=== PATIENT | male | born 1995 | race Caucasian/White ===

== ENCOUNTER 2018-04-24 08:52 | Emergency (ER) | payer OTHER ==
[~2018-04-24] VITALS: Ht 182.9 cm; Wt 113.5 kg
[2018-04-24 09:00] VITALS: BP 164/104
[2018-04-24] MEDS ORDERED: ibuprofen 200mg tablet PO ONE (09:30)
[2018-04-25] MEDS ORDERED: HYDR-4353 PO (20:12)
== END 2018-04-24 11:01 | disposition home or self-care (01) ==
LOC: ER 08:53
DX: S62.394A Other fracture of fourth metacarpal bone, right hand, initial encounter for closed fracture (principal); Y04.0XXA Assault by unarmed brawl or fight, initial encounter; Y93.89 Activity, other specified; Y92.89 Other specified places as the place of occurrence of the external cause; Y99.8 Other external cause status
CPT/HCPCS: 29125; 73130; 99283